=== PATIENT | male | born 1985 | race Caucasian/White ===

== ENCOUNTER 2017-06-24 19:59 | Emergency (ER) | payer BC ==
[2017-06-24 20:21] VITALS: BP 140/88
[2017-06-24] MEDS ORDERED: diphenhydrAMINE 50 MG/ML SDV IM ONE (21:25)
[2017-06-24] MEDS ORDERED: Ondansetron 4 MG Tab.DIS PO ONE (21:25)
[2017-06-24] MEDS ORDERED: Haloperidol Lactate 5 MG/ML SDV IM ONE (21:25)
[2017-06-24] MEDS ORDERED: Ketorolac 60 MG/2 ML SDV IM ONE (21:25)
--- NOTE | 2017-06-24 22:11 | EDM.PDOC ---
ED HPI GENERAL MEDICAL PROBLEM - General Chief Complaint: Headache Stated Complaint: VOMITING HEADACHE Time Seen by Provider: 06/24/17 20:37 Source of Information: Reports: Patient History Limitations: Reports: No Limitations - History of Present Illness INITIAL COMMENTS - FREE TEXT/NARRATIVE: Patient is a 32-year-old male presents ED complaining of left-sided migraine. Headache is retro-orbital described as stabbing, piercing, and throbbing. Headache is similar to previous episodes with onset. Pain is little more severe with traveling from [facility] Today. Patient states since flying he's had repetitive episodes of emesis. Unable to keep any liquids down. States the headache is quite severe in comparison to previous episodes. He does describe the headache as the worse headache he has had. He has not been evaluated by a neurologists. Has history chronic sinus congestion and has been evaluated by ENT and allergists. In addition has been evaluated by PT, isabel, with nothing helping. He has been fighting migraines for years. As of recent he has been experiencing increased frequency with CT ofthe head and MRI of the brain two weeks ago with no concerning findings. Headache started today at 1300hr. Denies recent trauma to the head or activity that may have precepitated this. Denies any vision changes, photophobia, hyperacusis, stiff neck, fevers, chest pain, shortness of breath, alcohol use, numbness and tingling to extremities, weakness , or any additional complaints. Patient admits to vomiting multiple times today since onset a headache. Headache was gradual with onset. Headache Pain Score (Numeric/FACES): 10 - Related Data Allergies Allergy/AdvReac Type Severity Reaction Status Date / Time cat dander Allergy Cannot Verified 06/07/17 07:39 Remember house dust Allergy Cannot Verified 06/07/17 07:40 Remember tree and shrub pollen Allergy Cannot Verified 06/07/17 07:40 Remember weed pollen Allergy Cannot Verified 06/07/17 07:40 Remember Home Meds: Home Meds Acetaminophen [Tylenol] 650 mg PO ONCALL PRN 05/05/15 [History] Ibuprofen 400 mg PO ONCALL PRN 05/05/15 [History] diphenhydrAMINE [Benadryl] 50 mg PO ONCALL PRN 05/05/15 [History] valACYclovir HCl [valACYclovir] 1,000 mg PO DAILY 06/24/17 [History] Past Medical History - Past Health History Medical/Surgical History: Denies Medical/Surgical History HEENT History: Reports: Allergic Rhinitis Neurological History: Reports: Headaches, Chronic - Past Surgical History HEENT Surgical History: Reports: Oral Surgery, Other (See Below) Social & Family History - Tobacco Use Smoking Status *Q: Unknown Ever Smoked - Caffeine Use Caffeine Use: Reports: Other - Recreational Drug Use Recreational Drug Use: No - Living Situation & Occupation Living situation: Reports: , with Family Occupation: Employed ED ROS GENERAL - Review of Systems Review Of Systems: ROS reveals no pertinent complaints other than HPI. - Physical Exam Exam: See Below Exam Limited By: No Limitations General Appearance: Alert, WD/WN, Moderate Distress Eye Exam: Bilateral Eye: EOMI, Nystagmus (None noted), PERRL Ears: Normal External Exam, Normal Canal, Hearing Grossly Normal, Normal TMs Nose: Normal Inspection, Normal Mucosa, No Blood Throat/Mouth: Normal Inspection, Normal Oropharynx, Normal Voice, No Airway Compromise Head Exam: Atraumatic, Normocephalic, Facial Tenderness (Left-sided forehead) Neck: Normal Inspection, Supple, Non-Tender, Full Range of Motion. No: Lymphadenopathy (L), Lymphadenopathy (R) Respiratory/Chest: No Respiratory Distress, Lungs Clear, Normal Breath Sounds, No Accessory Muscle Use, Chest Non-Tender Cardiovascular: Normal Peripheral Pulses, Regular Rate, Rhythm Neuro Exam (Abbreviated): Alert, Oriented, CN II-XII Intact, Normal Cognition, Normal Gait, No Motor/Sensory Deficits, Other (Cerebellar function intact: Finger-nose, rapid alternating movements. No weakness discrepancy as to the upper and lower extremities. No sensorimotor deficits noted. No facial droop, slurred speech, uvula deviation.) Back Exam: Normal Inspection Psychiatric: Normal Affect, Normal Mood Skin Exam: Warm, Dry, Intact, Normal Color, No Rash Course - Vital Signs Last Recorded V/S: Last Vital Signs Temp 96.3 F 06/24/17 20:20 Pulse 54 L 06/24/17 20:20 Resp 20 06/24/17 20:20 BP 140/88 06/24/17 20:20 Pulse Ox 100 06/24/17 20:20 - Orders/Labs/Meds Meds: Medications Discontinued Medications Generic Name Dose Route Start Last Admin Trade Name Freq PRN Reason Stop Dose Admin Diphenhydramine HCl 50 mg 06/24/17 21:25 06/24/17 21:39 Benadryl IM 06/24/17 21:26 50 mg ONETIME ONE Administration Haloperidol Lactate 5 mg 06/24/17 21:25 06/24/17 21:40 Haldol IM 06/24/17 21:26 5 mg ONETIME ONE Administration Ketorolac Tromethamine 60 mg 06/24/17 21:25 06/24/17 21:40 Toradol IM 06/24/17 21:26 60 mg ONETIME ONE Administration Ondansetron HCl 4 mg 06/24/17 21:25 06/24/17 21:40 Zofran Odt PO 06/24/17 21:26 4 mg ONETIME ONE Administration - Re-Assessments/Exams Free Text/Narrative Re-Assessment/Exam: Headache was gradual onset. Not described as a thunderclap headache. Headache is severe in nature and notes the repetitive vomiting is worse than previous episodes. Although more severe the symptoms are the same. We have come to the shared decision making that imaging of the brain such as CT is not needed at this time. I have al offered to starting IV and administer all meds IV with IV fluids. The patient refuses. I have ordered Haldol 5 mg IM, Benadryl 50 mg IM, Toradol 60 mg IM, and Zofran 4 mg ODT. 06/24/17 22:05 Reassessment, headache has decreased to a 5 out of 10. Nausea has resolved as well. He is ready to be discharged home. Discharge instructions as documented. The patient remained hemodynamically stable while under my care in the E.D. I discussed the concerning symptoms for which to return to the E.D. with the patient/family. The patient/family verbalized understanding. All questions were answered. Departure - Departure Time of Disposition: 22:37 Disposition: Home, Self-Care 01 Condition: Good Clinical Impression: Migraine - Discharge Information Instructions: Migraine Headache, [id number] Referrals: Evita Bose PA-C [Primary Care Provider] - Forms: ED Department Discharge Additional Instructions: Suggest going home and finding a dark room to sleep and with no distractions. No driving this evening since receiving a sedative medication. Return to the ED if you develop any new or worsening symptoms. Follow-up with PCP in the next 2- 3 days.
== END 2017-06-24 22:52 | disposition home or self-care (01) ==
LOC: JD.ED 19:59
DX: G43.909 Migraine, unspecified, not intractable, without status migrainosus (principal); Z91.048 Other nonmedicinal substance allergy status
CPT/HCPCS: 96372; 99284; A9270; J1200; J1630; J1885